=== PATIENT | male | born 1975 | race Caucasian/White ===

== ENCOUNTER 2021-05-03 13:43 | Outpatient (CLI) | payer BC | END 2021-05-03 13:44 | disposition home or self-care (01) | LOC: SCSMRI 13:43 | PROVIDERS: ATTEND Orthopaedic Surgery | DX: M75.41 Impingement syndrome of right shoulder (principal); S43.401A Unspecified sprain of right shoulder joint, initial encounter; M25.711 Osteophyte, right shoulder ==

== ENCOUNTER 2022-10-26 07:56 | Outpatient (CLI) | payer BC | END 2022-10-26 07:57 | disposition home or self-care (01) | LOC: TBSIIMAG 07:56 | PROVIDERS: ATTEND Family Medicine | DX: M47.22 Other spondylosis with radiculopathy, cervical region (principal); M25.78 Osteophyte, vertebrae | CPT/HCPCS: 72141 ==

== ENCOUNTER 2022-10-31 07:57 | Outpatient (CLI) | payer BC | END 2022-10-31 07:58 | disposition home or self-care (01) | LOC: TBSIIMAG 07:57 | PROVIDERS: ATTEND Family Medicine | DX: M54.16 Radiculopathy, lumbar region (principal); M51.37 Other intervertebral disc degeneration, lumbosacral region | CPT/HCPCS: 72148 ==

== ENCOUNTER 2022-12-06 14:59 | Outpatient (CLI) | payer BC | END 2022-12-06 15:00 | disposition home or self-care (01) | LOC: TBSIIMAG 14:59 | PROVIDERS: ATTEND Neurological Surgery | DX: M54.16 Radiculopathy, lumbar region (principal); M47.812 Spondylosis without myelopathy or radiculopathy, cervical region; R29.890 Loss of height; M25.78 Osteophyte, vertebrae | CPT/HCPCS: 72040 ==

== ENCOUNTER 2022-12-13 13:34 | Outpatient (CLI) | payer BC | END 2022-12-13 13:35 | disposition home or self-care (01) | LOC: TBSIIMAG 13:34 | PROVIDERS: ATTEND Family Medicine | DX: M43.16 Spondylolisthesis, lumbar region (principal); M25.78 Osteophyte, vertebrae; M47.817 Spondylosis without myelopathy or radiculopathy, lumbosacral region | CPT/HCPCS: 72120 ==

== ENCOUNTER 2023-01-02 14:32 | Outpatient (CLI) | payer BC | END 2023-01-02 14:33 | disposition home or self-care (01) | LOC: TBSIIMAG 14:32 | PROVIDERS: ATTEND Orthopaedic Surgery | DX: S46.011A Strain of muscle(s) and tendon(s) of the rotator cuff of right shoulder, initial encounter (principal); M19.011 Primary osteoarthritis, right shoulder; M75.111 Incomplete rotator cuff tear or rupture of right shoulder, not specified as traumatic; S43.401A Unspecified sprain of right shoulder joint, initial encounter; M24.811 Other specific joint derangements of right shoulder, not elsewhere classified; R60.0 Localized edema ==

== ENCOUNTER 2023-01-03 14:56 | Outpatient (CLI) | payer BC ==
[2023-01-03 15:26] LABS: Hemoglobin 14.8 g/dL (13.5-17.5); Mean Corpuscular HGB CONC 33.6 g/dL (32.0-36.0); Mean Corpuscular Hemoglobin 28.7 pg (27.0-33.0); Mean Corpuscular Volume 85.6 fl (81.2-95.1); Mean Platelet Volume 9.9 fl (7.4-10.4); Platelet Count 252 10x3/uL (150-450); RBC Distribution Width 12.1 % (11.5-14.5); Red Blood Cell (RBC) Count 5.15 10x6/uL (4.32-5.72)
[2023-01-03 15:47] LABS: INR-International Normal Ratio 0.9; Prothrombin Time 10.2 sec (9.5-12.1)
== END 2023-01-03 14:57 | disposition home or self-care (01) ==
LOC: LABBT 14:56
PROVIDERS: ATTEND Neurological Surgery
DX: Z01.812 Encounter for preprocedural laboratory examination (principal); M50.123 Cervical disc disorder at C6-C7 level with radiculopathy; M25.78 Osteophyte, vertebrae
CPT/HCPCS: 85027; 85610; 85730

== ENCOUNTER 2023-02-07 14:58 | Outpatient (CLI) | payer BC ==
[2023-02-07 15:48] LABS: #Eosinphils 0.2 10x3/uL (0.0-0.5); #Monocytes 0.8 10x3/uL (0.0-1.1); #Neutrophils 3.4 10x3/uL (1.5-8.4); %Basophils 0.6 % (0.0-2.0); %Lymphocytes 35.7 % (18.0-47.0); %Monocytes 11.5 % (0.0-10.0); %Neutrophils 47.5 % (40.0-75.0); Hemoglobin 14.6 g/dL (13.5-17.5); Mean Corpuscular HGB CONC 33.6 g/dL (32.0-36.0); Mean Corpuscular Hemoglobin 29.3 pg (27.0-33.0); Mean Corpuscular Volume 87.2 fl (81.2-95.1); Mean Platelet Volume 10.1 fl (7.4-10.4); Platelet Count 243 10x3/uL (150-450); RBC Distribution Width 12.4 % (11.5-14.5); Red Blood Cell (RBC) Count 4.99 10x6/uL (4.32-5.72); White Blood Cell (WBC) Count 7.1 10x3/uL (3.5-10.5)
[2023-02-07 16:15] LABS: Anion Gap 9 mmol/L (10-20); BUN (Urea Nitrogen) 19 mg/dL (8.9-20.6); Calc. Creatinine Clearance 0 mL/min (70-130); Carbon Dioxide 30 mmol/L (22-29); Chloride 105 mmol/L (98-107); Estimated GFR 89; Glucose 103 mg/dL (70-105); Potassium 4.1 mmol/L (3.5-5.1); Sodium 140 mmol/L (136-145)
== END 2023-02-07 14:59 | disposition home or self-care (01) ==
LOC: LABBT 14:58
PROVIDERS: ATTEND Orthopaedic Surgery
DX: Z01.812 Encounter for preprocedural laboratory examination (principal); S46.011A Strain of muscle(s) and tendon(s) of the rotator cuff of right shoulder, initial encounter; S43.431A Superior glenoid labrum lesion of right shoulder, initial encounter; M19.011 Primary osteoarthritis, right shoulder
CPT/HCPCS: 80048; 85025

== ENCOUNTER 2023-03-15 10:11 | Outpatient (CLI) | payer BC | END 2023-03-15 10:12 | disposition home or self-care (01) | LOC: RAD 10:11 | PROVIDERS: ATTEND Neurological Surgery | DX: M47.22 Other spondylosis with radiculopathy, cervical region (principal); M50.122 Cervical disc disorder at C5-C6 level with radiculopathy; Z98.1 Arthrodesis status | CPT/HCPCS: 72040 ==

== ENCOUNTER 2024-01-16 14:48 | Outpatient (CLI) | payer OTHER ==
[2024-01-16 16:00] LABS: #Basophils 0.05 10x3/uL (0.0-0.2); #Eosinphils 0.16 10x3/uL (0.0-0.5); #Monocytes 0.71 10x3/uL (0.0-1.1); #Neutrophils 3.44 10x3/uL (1.5-8.4); %Basophils 0.8 % (0.0-2.0); %Eosinophils 2.4 % (0.0-6.0); %Lymphocytes 33.4 % (18.0-47.0); %Monocytes 10.7 % (0.0-10.0); %Neutrophils 52.1 % (40.0-75.0); Hemoglobin 16.2 g/dL (13.5-17.5); Mean Corpuscular HGB CONC 34.5 g/dL (32.0-36.0); Mean Corpuscular Hemoglobin 29.7 pg (27.0-33.0); Mean Corpuscular Volume 86.2 fl (81.2-95.1); Mean Platelet Volume 10.1 fl (7.4-10.4); Platelet Count 257 10x3/uL (150-450); RBC Distribution Width 12.2 % (11.5-14.5); Red Blood Cell (RBC) Count 5.45 10x6/uL (4.32-5.72); White Blood Cell (WBC) Count 6.6 10x3/uL (3.5-10.5)
[2024-01-16 16:21] LABS: Prothrombin Time 10.7 sec (9.5-12.1)
[2024-01-16 16:27] LABS: Anion Gap 14 mmol/L (10-20); BUN (Urea Nitrogen) 19 mg/dL (8.9-20.6); Calc. Creatinine Clearance 0 mL/min (70-130); Calcium 9.4 mg/dL (7.8-10.44); Carbon Dioxide 26 mmol/L (22-29); Chloride 107 mmol/L (98-107); Estimated GFR 99; Glucose 94 mg/dL (70-105); Potassium 4.1 mmol/L (3.5-5.1); Sodium 143 mmol/L (136-145)
== END 2024-01-16 14:49 | disposition home or self-care (01) ==
LOC: LABBT 14:48
PROVIDERS: ATTEND Orthopaedic Surgery
DX: Z01.818 Encounter for other preprocedural examination (principal); M17.12 Unilateral primary osteoarthritis, left knee
CPT/HCPCS: 80048; 85025; 85610; 87081; 93005; 93010

== ENCOUNTER 2024-01-23 05:33 | Observation (INO) | payer OTHER ==
[2024-01-16 15:36] VITALS: BMI 30.7
[2024-01-23] MEDS ORDERED: Tranexamic Acid 1,000 MG/10 ML VIAL ONE (05:58)
[2024-01-23] MEDS ORDERED: Vancomycin (BATCH) 1.5 GM/300 ML BAG ONE (05:58)
[2024-01-23] MEDS ORDERED: Sodium Chloride 0.9% 100 ML ONE ×2 (05:58→06:45)
[2024-01-23] MEDS ORDERED: PROPOFOL 40 ML ONE (06:22)
[2024-01-23] MEDS ORDERED: fentaNYL PF 100 MCG/2 ML SYRINGE ONE ×2 (06:22→08:46)
[2024-01-23] MEDS ORDERED: Lidocaine 1% PF 5 ML VIAL ONE (06:23)
[2024-01-23] MEDS ORDERED: Dexamethasone 20 MG/5 ML VIAL ONE (06:23)
[2024-01-23] MEDS ORDERED: Midazolam HCl 2 mg/2 ml Vial ONE (06:23)
[2024-01-23] MEDS ORDERED: Lidocaine 2% 6 ML (Jelly) SYR ONE (06:23)
[2024-01-23] MEDS ORDERED: Ondansetron PF 4 MG/2 ML Vial ONE (06:23)
[2024-01-23] MEDS ORDERED: Bupivacaine PF 0.5% 30 ML VIAL ONE ×2 (06:39→08:04)
[2024-01-23] MEDS ORDERED: HYDROmorphone 2 MG/ML VIAL SLOW IVP PRN (06:40)
[2024-01-23] MEDS ORDERED: Ondansetron HCl/PF 4 MG/2 ML Vial IVP PRN (06:40)
[2024-01-23] MEDS ORDERED: Promethazine HCl 25 MG/ML VIAL IM PRN ×3 (06:40→10:19)
[2024-01-23] MEDS ORDERED: Bupivacaine 0.25% HCL 30 ML VIAL ONE (06:45)
[2024-01-23] MEDS ORDERED: CEFAZOLIN 2 GM VIAL ONE (06:45)
[2024-01-23] MEDS ORDERED: Bupivacaine HCl 0.5%/Epinephrine 1:200,000/PF 30 ml Vial ONE (07:00)
[2024-01-23] MEDS ORDERED: SUCCINYLCHOLINE/SOD CL,ISO/PF 200 MG/10 ML SYRINGE FS ONE (07:28)
[2024-01-23] MEDS ORDERED: ePHEDrine Sulfate 50 MG/10 ML VIAL ONE (07:32)
[2024-01-23] MEDS ORDERED: fentaNYL 50 mcg/mL 1 mL Vial SLOW IVP PRN (07:58)
[2024-01-23] MEDS ORDERED: traMADol HCl 50 MG TAB PO PRN ×2 (08:00)
[2024-01-23] MEDS ORDERED: Ondansetron PF 4 MG/2 ML Vial IVP PRN (08:00)
[2024-01-23] MEDS ORDERED: Ropivacaine 0.2% 550 ML 550 ML NERVE BLCK SCH (08:00)
[2024-01-23] MEDS ORDERED: HYDROcodone/Acetaminophen 10/325 mg Tablet PO PRN (08:00)
[2024-01-23] MEDS ORDERED: Zolpidem Tartrate 5 MG TAB PO PRN ×2 (08:00→10:19)
[2024-01-23] MEDS ORDERED: Lidocaine 1% (PF) 30 ML VIAL ONE (08:04)
[2024-01-23] MEDS ORDERED: HYDROmorphone 2 MG/ML VIAL ONE (09:59)
[2024-01-23] MEDS ORDERED: diphenhydrAMINE 25 MG CAP PO PRN (10:19)
[2024-01-23] MEDS ORDERED: Acetaminophen 325 MG TAB PO PRN (10:19)
[2024-01-23] MEDS ORDERED: Fentanyl 250 MCG/5 ML VIAL ONE (10:20)
[2024-01-23] MEDS ORDERED: Ketorolac Tromethamine 30 MG (1 mL) VIAL ONE (10:35)
[2024-01-23] MEDS: Ketorolac Tromethamine 30 MG (1 mL) VIAL IVP SCH (13:04)
[2024-01-23] MEDS: CEFAZOLIN 2 GM in Sodium Chloride 0.9% 100 ML IVPB SCH (15:53)
[2024-01-23] MEDS: Dextrose 5 %-0.45 % NaCl 1,000 ML IV SCH (17:12)
[2024-01-23] MEDS: Ondansetron PF 4 MG/2 ML Vial IVP PRN (17:58)
[2024-01-23] MEDS: Senokot S 8.6-50 MG TAB PO SCH (20:23)
[2024-01-23] MEDS: Aspirin 81 mg Enteric Coated Tablet PO SCH (20:23)
[2024-01-23] MEDS: Ferrous Gluconate 324 MG TAB PO SCH (20:23)
[2024-01-24 05:37] LABS: Hematocrit 38.7 % (42.0-52.0); Hemoglobin 13.1 g/dL (14.0-18.0); Mean Corpuscular HGB CONC 33.9 g/dL (32.0-36.0); Mean Corpuscular Hemoglobin 29.5 pg (27.0-31.0); Mean Corpuscular Volume 87.2 fL (78.0-98.0); Mean Platelet Volume 10.4 fL (7.4-10.4); Platelet Count 226 10x3/uL (130-400); RBC Distribution Width 12.1 % (11.5-14.5); Red Blood Cell (RBC) Count 4.44 mill/uL (4.70-6.10)
[2024-01-24 07:26] VITALS: BP 128/80; TEMP 98.5
[2024-01-24] MEDS: HYDROcodone/Acetaminophen 10/325 mg Tablet PO PRN (09:12)
[2024-01-24] MEDS: Multivitamin W/ Minerals 1 TAB PO SCH (09:14)
== END 2024-01-24 11:32 | disposition home or self-care (01) ==
LOC: SDC 05:33 → SJJU 12:11
PROVIDERS: ADMIT Orthopaedic Surgery; ATTEND Orthopaedic Surgery
PROC: 0SRD06Z Replacement of Left Knee Joint with Oxidized Zirconium on Polyethylene Synthetic Substitute, Open Approach (ICD-10-PCS; principal; 2024-01-23)
PROC: 3E0T3BZ Introduction of Anesthetic Agent into Peripheral Nerves and Plexi, Percutaneous Approach (ICD-10-PCS; 2024-01-23)
DX: M17.12 Unilateral primary osteoarthritis, left knee (principal)
CPT/HCPCS: 85027; A4306; C1713; C1776; C1889; J0665; J1100; J1170; J1885; J2001; J2250; J2405; J2704; J2795; J3010; J3370; J3490

== ENCOUNTER 2024-03-05 07:41 | Outpatient (CLI) | payer BC, OTHER ==
[2024-03-05 09:53] LABS: Hematocrit 43.9 % (38.8-50.0); Mean Corpuscular HGB CONC 34.2 g/dL (32.0-36.0); Mean Corpuscular Hemoglobin 29.6 pg (27.0-33.0); Mean Corpuscular Volume 86.8 fL (81.2-95.1); Mean Platelet Volume 10.6 fL (7.4-10.4); Platelet Count 243 10x3/uL (150-450); RBC Distribution Width 12.4 % (11.5-14.5); Red Blood Cell (RBC) Count 5.06 10x6/uL (4.32-5.72); White Blood Cell (WBC) Count 7.1 10x3/uL (3.5-10.5)
[2024-03-05 10:04] LABS: INR-International Normal Ratio 0.9; Prothrombin Time 10.1 sec (9.5-12.1)
== END 2024-03-05 07:42 | disposition home or self-care (01) ==
LOC: LABBT 07:41
PROVIDERS: ATTEND Neurological Surgery
DX: Z01.812 Encounter for preprocedural laboratory examination (principal); M43.16 Spondylolisthesis, lumbar region; M48.061 Spinal stenosis, lumbar region without neurogenic claudication
CPT/HCPCS: 85027; 85610; 85730

== ENCOUNTER 2024-03-05 08:00 | Inpatient (IN) | payer BC, OTHER ==
[2024-03-05 08:13] VITALS: BMI 33.9
[2024-03-14] MEDS ORDERED: EPINEPHrine 1 MG/ML VIAL ONE (06:10)
[2024-03-14] MEDS ORDERED: Thrombin 5000 UNITS/5 ML VIAL ONE (06:11)
[2024-03-14] MEDS ORDERED: Bupivacaine PF 0.5% 30 ML VIAL ONE (06:11)
[2024-03-14] MEDS ORDERED: Vancomycin 1 GM VIAL ONE (06:11)
[2024-03-14] MEDS ORDERED: PROPOFOL 20 ML ONE (06:14)
[2024-03-14] MEDS ORDERED: Ketamine In 0.9 % NaCl 50 MG/5 ML SYRINGE ONE (06:14)
[2024-03-14] MEDS ORDERED: Lidocaine 1% PF 5 ML VIAL ONE (06:15)
[2024-03-14] MEDS ORDERED: Rocuronium Bromide 10 MG/ML (10ML VIAL) ONE (06:15)
[2024-03-14] MEDS ORDERED: Fentanyl 250 MCG/5 ML VIAL ONE (06:15)
[2024-03-14] MEDS ORDERED: MINERAL OIL/WHITE PETROLATUM 3.5 GM TUBE ONE (06:20)
[2024-03-14] MEDS ORDERED: Scopolamine 1 mg/72 hour Patch ONE (06:33)
[2024-03-14] MEDS ORDERED: Bisacodyl 10 MG SUPP PR PRN (06:33)
[2024-03-14] MEDS ORDERED: Famotidine/PF 20 mg/2ml Vial ONE (06:33)
[2024-03-14] MEDS ORDERED: Promethazine HCl 25 MG/ML VIAL IM PRN ×2 (06:33→12:23)
[2024-03-14] MEDS ORDERED: Midazolam HCl 2 mg/2 ml Vial ONE (06:45)
[2024-03-14] MEDS ORDERED: Sodium Chloride 0.9% 100 ML ONE (06:45)
[2024-03-14] MEDS ORDERED: CEFAZOLIN 2 GM VIAL ONE (06:45)
[2024-03-14] MEDS ORDERED: Glycopyrrolate 0.2 MG/ML 5 ML SYRINGE ONE (07:44)
[2024-03-14] MEDS ORDERED: ePHEDrine Sulfate 50 MG/10 ML VIAL ONE (07:49)
[2024-03-14] MEDS ORDERED: PHENYLEPHRINE-NS 100 MCG/ML 10 ML SYRINGE ONE (07:58)
[2024-03-14] MEDS ORDERED: Albumin 5% 500 ML ONE (08:42)
[2024-03-14] MEDS ORDERED: Dexamethasone 20 MG/5 ML VIAL ONE (09:08)
[2024-03-14] MEDS ORDERED: Vecuronium 10 MG VIAL ONE ×2 (09:10→11:42)
[2024-03-14] MEDS ORDERED: CEFAZOLIN 1 GM VIAL ONE (10:24)
[2024-03-14] MEDS ORDERED: Sterile Water 20 ML ONE (10:24)
[2024-03-14] MEDS ORDERED: Ondansetron PF 4 MG/2 ML Vial ONE (11:44)
[2024-03-14] MEDS ORDERED: Ketorolac Tromethamine 30 MG (1 mL) VIAL ONE (12:12)
[2024-03-14] MEDS ORDERED: SUGAMMADEX SODIUM 200 MG/2 ML VIAL ONE (12:21)
[2024-03-14] MEDS ORDERED: Ondansetron HCl/PF 4 MG/2 ML Vial IVP PRN (12:23)
[2024-03-14] MEDS ORDERED: HYDROmorphone 2 MG/ML VIAL SLOW IVP PRN (12:23)
[2024-03-14] MEDS ORDERED: Morphine Sulfate 2 MG/ML SYRINGE SLOW IVP PRN (12:23)
[2024-03-14] MEDS ORDERED: PACU-Morphine 4MG/ML VIAL SLOW IVP PRN (12:23)
[2024-03-14] MEDS ORDERED: fentaNYL 50 mcg/mL 1 mL Vial ONE ×3 (13:10→13:49)
[2024-03-14] MEDS: Pantoprazole DR 40 MG TAB PO SCH (14:30)
[2024-03-14] MEDS: Sodium Chloride 0.9% 1,000 ML IV SCH (14:30)
[2024-03-14] MEDS: CEFAZOLIN 2 GM in Sodium Chloride 0.9% 100 ML IVPB SCH (14:30)
[2024-03-14] MEDS: HYDROcodone/Acetaminophen 7.5/325 mg Tablet PO PRN (17:10)
[2024-03-14] MEDS: Acetaminophen/Codeine 30-300mg Tablet PO PRN (18:51)
[2024-03-14] MEDS: tiZANidine HCl 4 MG TAB PO PRN (21:18)
[2024-03-15] MEDS: Milk Of Magnesia 30 ML UDCUP PO PRN (02:12)
[2024-03-15] MEDS: Ondansetron PF 4 MG/2 ML Vial IVP PRN (04:10)
[2024-03-15] MEDS: Morphine 2 MG/ML VIAL SLOW IVP PRN (04:10)
[2024-03-15] MEDS: tiZANidine HCl 4 MG TAB PO PRN (07:49)
[2024-03-15] MEDS: HYDROcodone/Acetaminophen 10/325 mg Tablet PO PRN (08:08)
[2024-03-15] MEDS: Morphine 4 MG/ML VIAL SLOW IVP PRN (09:36)
[2024-03-15] MEDS: diphenhydrAMINE 50 MG/ML VIAL IVP PRN (18:42)
[2024-03-16] MEDS: Mag-Al 1200 mg/1200 mg/30 ML UDCUP PO PRN (02:10)
[2024-03-16] MEDS: Acetaminophen 325 MG TAB PO PRN (17:57)
[2024-03-16] MEDS: Diazepam 5 MG TAB PO PRN (20:10)
[2024-03-16] MEDS: Dexamethasone 10 MG/ML VIAL SLOW IVP SCH (20:10)
[2024-03-17] MEDS ORDERED: Bisacodyl 5 MG TAB PO PRN (10:14)
[2024-03-17] MEDS: Bisacodyl 5 MG TAB PO SCH (10:50)
[2024-03-17] MEDS: Dexamethasone 4 MG TAB PO SCH (10:50)
[2024-03-18 07:56] VITALS: BP 118/74; TEMP 97.8
[2024-03-18] MEDS: Dexamethasone 1 MG TAB PO SCH (10:53)
[2024-03-19] MEDS ORDERED: Dexamethasone 1 MG TAB PO SCH (11:00)
[2024-03-20] MEDS ORDERED: Dexamethasone 1 MG TAB PO SCH (11:00)
== END 2024-03-18 13:13 | disposition home or self-care (01) | DRG 455 ==
LOC: SURG A 03-14 05:45 → T4-A 03-14 14:48
PROVIDERS: ADMIT Neurological Surgery; ATTEND Neurological Surgery
PROC: 01NB0ZZ Release Lumbar Nerve, Open Approach (ICD-10-PCS; principal; 2024-03-14)
PROC: 0SG30AJ Fusion of Lumbosacral Joint with Interbody Fusion Device, Posterior Approach, Anterior Column, Open Approach (ICD-10-PCS; 2024-03-14)
PROC: 0SG3071 Fusion of Lumbosacral Joint with Autologous Tissue Substitute, Posterior Approach, Posterior Column, Open Approach (ICD-10-PCS; 2024-03-14)
PROC: 0SB40ZZ Excision of Lumbosacral Disc, Open Approach (ICD-10-PCS; 2024-03-14)
PROC: 3E033XZ Introduction of Vasopressor into Peripheral Vein, Percutaneous Approach (ICD-10-PCS; 2024-03-14)
PROC: 30233J1 Transfusion of Nonautologous Serum Albumin into Peripheral Vein, Percutaneous Approach (ICD-10-PCS; 2024-03-14)
DX: M43.16 Spondylolisthesis, lumbar region (principal); M48.062 Spinal stenosis, lumbar region with neurogenic claudication; M19.90 Unspecified osteoarthritis, unspecified site; Z88.5 Allergy status to narcotic agent
CPT/HCPCS: A4314; C1713; C1889; J0171; J0665; J0690; J1100; J1200; J1885; J2250; J2272; J2405; J2704; J3010; J3370; J3490; J8540; P9045